=== PATIENT | male | born 1955 | race Caucasian/White ===

== ENCOUNTER 2017-01-19 01:49 | Inpatient (IN) | payer OTHER ==
[~2017-01-19] VITALS: Ht 167.6 cm; Wt 63.0 kg
--- NOTE | ~2017-01-19 | PR ---
[place], [place] PROGRESS NOTE NAME: ARIEL LOJA UNIT #: [id number] ROOM: 317 DOCTOR: LILIYA LEACH BIRTHDATE: [birth year] DOS: 01/21/2017 CHIEF COMPLAINT: "Good morning." SUMMARY OF VISIT: The patient was assessed in his room where he engaged in conversation. It should be noted that nurses stated that he did not sleep well last night. He does state that overall he is feeling better, but he also acknowledges poor sleep. MENTAL STATUS: He is alert and oriented to person, place, approximate to time. Mood is a little bit irritable. No overt signs of auditory or visual hallucinations, delusions, paranoia, richard or hypomania. Memory overall appears to be intact. PLAN: His Invega was increased yesterday. Dr. Ramos went ahead and increased his trazodone for the nighttime to help with the insomnia and we increased it to 100 mg at bedtime. We will see if this helps with his sleep. If we can get him sleeping better, this may help with his mood lability and overall outlook. We will continue to try to engage in individual and carlisle milieu therapy with the plan to getting him back to [place] once stable. NELLY LEACH CNP CM:PNTRANS [id number] LILIYA LEACH 01/21/17 1158 interface
--- NOTE | ~2017-01-19 | PR ---
[place], [place] PROGRESS NOTE NAME: ARIEL LOJA UNIT #: [id number] ROOM: 317 DOCTOR: LILIYA LEACH BIRTHDATE: [birth year] DOS: 01/22/2017 SUMMARY OF VISIT: The patient assessed in the dining room where he has finished up breakfast. He stated that he slept well, very fast pace, speech pressured, little bit manicky, states that he is feeling good when can he get out of here. He is only supposed to be here 3 days talked about the recent fall just jumping all over the place. MENTAL STATUS: He is alert and oriented to person, place, approximate time. Mood, hypomanic to manic. Affect a little bit inappropriate. There are no overt signs of auditory or visual hallucinations may be some delusional thought processes. No paranoia. Memory overall intact. PLAN: I discussed with Dr. Ramos. I am going to go ahead and increase his trazodone to 150 mg at bedtime to help with his sleep. He got about 5 hours of sleep last night was the most he has had since he has been here, sore on the right track but also going to go ahead and increase his Invega see if I can help break some of this richard and psychosis and delusions. We will continue to try to engage in individual and carlisle milieu therapy with the plan to discharge once stable. NELLY LEACH CNP CM:PNTRANS LILIYA LEACH 01/22/17 1656 interface
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
--- NOTE | ~2017-01-19 | PR ---
[place], [place] PROGRESS NOTE NAME: ARIEL LOJA UNIT #: [id number] ROOM: 317 DOCTOR: DARON ECHEVARRIA MD BIRTHDATE: [birth year] DOS: 01/20/2017 CHIEF COMPLAINT: "I was sleeping, so hard when they came in to give me my trazodone last night. I don't even remember if I took it." SUMMARY OF THE VISIT: The patient was interviewed in his room. He was sitting on the edge of his bed and engaged readily in conversation. He did report to me that he is feeling better since he has been here and is anxious to go back to [place]. Per his report, he has lived there for over 5 years and per his report loves it very much. He denies any medication side effects and feels that overall things are improving. Nurses report; however, he still can be short and terse and very irritable at times. He is tolerating the current medication regimen well. MENTAL STATUS: He is alert and oriented to person, place and time. Mood does seem to be still somewhat labile, but improving. There is no gross richard or hypomania. There are no gross auditory or visual hallucinations. Short, intermediate and assisted memory are relatively intact. PLAN: I will go ahead now and increase the Invega to its target dose of 6 mg in the morning. I will also check a valproic acid level in the a.m. to ensure that we are trending towards a therapeutic level, continue to engage him in individual and carlisle milieu activity with the ultimate plan to return him back to [place] when stable. DARON ECHEVARRIA MD CM:PNTRANS [id number] DARON ECHEVARRIA MD 01/20/17 1150 interface
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
[2017-01-19] MEDS ORDERED: ABILIFY15 MG PO (02:05)
[2017-01-19] MEDS ORDERED: METFORMIN HCL500 M2 PO (02:06)
[2017-01-19] MEDS ORDERED: XANAX0.5 MG PO (02:07)
[2017-01-19] MEDS ORDERED: PERPHENAZINE8 MG PO (02:08)
[2017-01-19] MEDS ORDERED: D3-20002000 UNIT PO (02:08)
[2017-01-19] MEDS ORDERED: CLARITIN10 MG PO (02:09)
[2017-01-19] MEDS ORDERED: ZESTRIL10 MG PO (02:09)
[2017-01-19] MEDS ORDERED: TRAZODONE100 MG PO (02:10)
[2017-01-19] MEDS ORDERED: ZOCOR40 MG PO (02:11)
[2017-01-19] MEDS ORDERED: EFFEXOR XR75 MG PO (02:12)
[2017-01-19] MEDS ORDERED: DEPAKOTE500 MG PO (02:12)
[2017-01-19 03:42] VITALS: BP 147/75
[2017-01-19] MEDS ORDERED: LISINOPRIL20 MG PO (03:53)
[2017-01-19 04:13] LABS: BILIRUBIN NEGATIVE (NEGATIVE); BLOOD 3+ (NEGATIVE); CLARITY CLEAR (CLEAR); COLOR YELLOW (YELLOW); GLUCOSE NEGATIVE (NEGATIVE); KETONE TRACE (NEGATIVE); LEUKO ESTERASE TRACE (NEGATIVE); NITRITE NEGATIVE (NEGATIVE); PROTEIN NEGATIVE (NEGATIVE); SPECIFIC GRAVITY 1.015 (1.005-1.030)
[2017-01-19 04:21] LABS: RBC 31-40 rbc/hpf (0-2); URINE REFLEX COMMENT YES (NO)
[2017-01-19 07:50] VITALS: BP 149/85
[2017-01-19 08:43] LABS: BASO % 0.5 % (0.0-1.0); EOS # 0.1 10*3/uL (0.0-0.4); EOS % 0.9 % (1.0-4.0); HEMATOCRIT 44.4 % (42.0-52.0); HEMOGLOBIN 14.6 g/dl (14.0-18.0); LYMPH # 1.6 10*3/uL (1.3-4.4); LYMPH % 17.9 % (27.0-41.0); MEAN CELL VOLUME 87.7 fl (80.0-94.0); MEAN CORPUSCULAR HGB 28.9 pg (27.0-31.0); MEAN CORPUSCULAR HGB CONC 32.9 g/dl (33.0-37.0); MEAN PLATELET VOLUME 10.8 fl (9.6-12.3); MONO % 11.3 % (3.0-9.0); NEUT # 6.1 10*3/uL (2.3-7.9); NEUT % 68.9 % (47.0-73.0); PLATELET COUNT AUTOMATED 188 10*3/uL (130-400); RED BLOOD COUNT 5.06 10*6/uL (4.50-5.90); RED CELL DISTRI WIDTH 13.1 % (0-14.5); WHITE BLOOD COUNT 8.8 10*3/uL (4.8-10.8)
[2017-01-19 08:55] LABS: HEMOGLOBIN A1c 5.8 % (4.8-5.6)
[2017-01-19 09:05] LABS: ALBUMIN 3.7 gm/dl (3.1-4.5); BUN 15 mg/dl (7-24); CARBON DIOXIDE 27 mmol/L (21-32); CHLORIDE 103 mmol/L (98-107); GLUCOSE 107 mg/dL (65-99); POTASSIUM 4.4 mmol/L (3.5-5.1); SODIUM 141 mmol/L (136-145)
[2017-01-19 09:08] LABS: ALKALINE PHOSPHATASE 46 U/L (45-117); BILIRUBIN, TOTAL 0.5 mg/dl (0.2-1.0); EST GLOM FILT AFRICAN AMERICAN > 60 ml/min; SGOT/AST 36 IU/L (3-35); SGPT/ALT 39 U/L (12-78); TOTAL PROTEIN 7.4 gm/dL (6.4-8.2)
[2017-01-19 09:26] LABS: FOLIC ACID 15.49 ng/mL (>5.38); VITAMIN D, 25-HYDROXY 137.8 ng/mL (30-100)
[2017-01-19] MEDS ORDERED: OMEPRAZOLE20 M2 PO (16:52)
[2017-01-19 20:42] VITALS: BP 140/76
[2017-01-20 09:00] VITALS: BP 140/82
[2017-01-20 21:02] VITALS: BP 110/70
[2017-01-21 07:54] VITALS: BP 136/97
[2017-01-21 19:45] VITALS: BP 150/75
[2017-01-22 07:26] VITALS: BP 124/68
[2017-01-22 20:39] VITALS: BP 131/80
[2017-01-23 07:14] VITALS: BP 154/88
[2017-01-23] MEDS ORDERED: DIVALPROEX SOD500 MG PO (09:16)
[2017-01-23] MEDS ORDERED: TRAZODONE150 MG PO (09:16)
[2017-01-23] MEDS ORDERED: INVEGA9 MG PO (09:16)
== END 2017-01-23 11:15 | DRG 885 ==
LOC: 3N 01:49
PROVIDERS: Psychiatry & Neurology Psychiatry
DX: F25.9 Schizoaffective disorder, unspecified (principal); F23 Brief psychotic disorder; I10 Essential (primary) hypertension; F42.9 Obsessive-compulsive disorder, unspecified; E11.9 Type 2 diabetes mellitus without complications; E55.9 Vitamin D deficiency, unspecified; E78.5 Hyperlipidemia, unspecified; Z90.49 Acquired absence of other specified parts of digestive tract; Z82.0 Family history of epilepsy and other diseases of the nervous system; Z83.3 Family history of diabetes mellitus; Z88.6 Allergy status to analgesic agent; Z79.84 Long term (current) use of oral hypoglycemic drugs; Z79.899 Other long term (current) drug therapy

== ENCOUNTER 2025-05-17 11:19 | Inpatient (IN) | payer MEDICAID ==
[~2025-05-17] VITALS: Ht 167.6 cm; Wt 69.4 kg
[~2025-05-17 11:19] MED LIST: ABILIFY15 MG PO; CIMETIDINE400 M1 PO; CLARITIN10 MG PO; CLONAZEPAM0.5 M2 PO; D3-20002000 UNIT PO; DEPAKOTE500 MG PO; DIVALPROEX SOD500 MG PO; EFFEXOR XR75 MG PO; FLUVOXAMINE50 MG PO; GABAPENTIN800 MG PO; GEMTESA75 MG PO; INVEGA9 MG PO; KAPSPARGO SPRIN50 MG PO; LISINOPRIL20 MG PO; METFORMIN HCL500 M2 PO; NEURONTIN100 MG PO; OMEPRAZOLE20 M2 PO; OXYBUTYNIN10 MG PO; PERPHENAZINE8 MG PO; PRAVASTATIN SOD20 MG PO; RISPERDAL1 M1 PO; RISPERIDONE2 M2 PO; TAMSULOSIN HCL0.4 MG PO; TRAZODONE100 MG PO; TRAZODONE150 MG PO; XANAX0.5 MG PO; ZESTRIL10 MG PO; ZOCOR40 MG PO
[2025-05-17 11:28] VITALS: BP 124/75
[2025-05-17] MEDS ORDERED: LAMICTAL25 MG PO (11:39)
[2025-05-17] MEDS ORDERED: FLUVOXAMINE50 MG PO (11:41)
[2025-05-17] MEDS ORDERED: FLUVOXAMINE100 MG PO (11:42)
[2025-05-17] MEDS ORDERED: RISPERDAL3 M1 PO (11:48)
[2025-05-17 12:12] LABS: BASO # 0.1 10*3/uL (0.0-0.1); BASO % 0.7 % (0.0-1.0); EOS # 0.2 10*3/uL (0.0-0.4); EOS % 2.2 % (1.0-4.0); MEAN CELL VOLUME 89.8 fl (80.0-94.0); MEAN CORPUSCULAR HGB 28.5 pg (27.0-31.0); MEAN PLATELET VOLUME 8.9 fl (9.6-12.3); MONO # 1.0 10*3/uL (0.1-1.0); MONO % 13.6 % (3.0-9.0); NEUT # 4.2 10*3/uL (2.3-7.9); NEUT % 57.1 % (47.0-73.0); NUCLEATED RED BLOOD CELL 0.0 % (0.0-0.0); NUCLEATED RED BLOOD CELL 0.0 10*3/uL (0.0-0.0); PLATELET COUNT AUTOMATED 196 10*3/uL (130-400); RED CELL DISTRI WIDTH 13.2 % (0-14.5)
[2025-05-17 12:12] LABS: BILIRUBIN Negative (Negative); BLOOD Negative (Negative); CLARITY Clear (Clear); COLOR Yellow (Yellow); KETONE Negative (Negative); LEUKO ESTERASE Negative (Negative); NITRITE Negative (Negative); PH 7.5 (4.5-8.0); SPECIFIC GRAVITY 1.015 (1.001-1.030); UROBILINOGEN 1.0 E.U./dl (0.0-1.0)
[2025-05-17 12:28] LABS: BACTERIA 2+; RBC 0-2 rbc/hpf (0-2); WBC 0-2 wbc/hpf (0-5)
[2025-05-17 12:32] LABS: BUN 16 mg/dl (9-23)
[2025-05-17 12:37] LABS: ETHYL ALCOHOL < 3.0 mg/dl (<3)
[2025-05-17 12:59] LABS: URINE AMPHETAMINES Negative (1000ng/ml); URINE BARBITURATES Negative (200ng/ml); URINE BENZODIAZEPINES Negative (200ng/ml); URINE CANNABINOIDS (THC) Negative (50ng/ml); URINE COCAINE Negative (300ng/ml); URINE METHADONE Negative (300ng/ml); URINE OPIATES Negative (300ng/ml); URINE PHENCYCLIDINE Negative (25ng/ml)
[2025-05-17 14:00] VITALS: BP 173/70
[2025-05-17] MEDS ORDERED: HEMORRHOIDAL RE30 GM T (14:26)
[2025-05-17] MEDS ORDERED: IMODIUM A-D2 M2 PO (14:27)
[2025-05-17] MEDS ORDERED: TRAMADOL HCL50 MG PO (14:28)
[2025-05-17] MEDS ORDERED: TRAZODONE50 MG PO (14:29)
[2025-05-17] MEDS ORDERED: TYLENOL325 M2 PO (14:30)
[2025-05-17] MEDS ORDERED: ZOLOFT50 MG PO (14:31)
[2025-05-17] MEDS ORDERED: VISTARIL25 MG PO (14:31)
[2025-05-17] MEDS ORDERED: ACETAMINOPHEN 325 MG TAB PO PRN (14:40)
[2025-05-17] MEDS ORDERED: MG-AL HYDROXIDE/SIMETICONE 30 ML UDC PO PRN (14:40)
[2025-05-17] MEDS ORDERED: Menthol/Zinc Oxide 4 GM THIN T PRN (14:50)
[2025-05-17] MEDS ORDERED: DEXTROSE 50% 25 GM/50 ML VIAL IV PRN (15:45)
[2025-05-17 16:16] VITALS: BP 158/74
[2025-05-17] MEDS ORDERED: INSULIN LISPRO 1 UNIT/0.01 ML SQ SCH (16:30)
[2025-05-17 20:00] VITALS: BP 145/76
[2025-05-17] MEDS ORDERED: CEPHALEXIN 500 MG CAP PO SCH (21:00)
[2025-05-17] MEDS ORDERED: risperiDONE 1 MG TAB PO SCH (21:00)
[2025-05-17] MEDS ORDERED: GABAPENTIN 800 MG TAB PO SCH (21:00)
[2025-05-17] MEDS ORDERED: FAMOTIDINE 20 MG TAB PO SCH (21:00)
[2025-05-17] MEDS ORDERED: LIDOCAINE 5% ANORECTAL CREAM T SCH (21:00)
[2025-05-17] MEDS ORDERED: ATORVASTATIN CALCIUM 10 MG TAB PO SCH (21:00)
[2025-05-18 06:48] LABS: BUN 17 mg/dl (9-23); LDL CHOLESTEROL 47 mg/dL (9-159); SGPT/ALT 8 U/L (5-49); VALPROIC ACID (DEPAKENE) 23.1 ug/ml (50-100)
[2025-05-18 08:06] LABS: VITAMIN D, 25-HYDROXY 99.5 ng/mL (30-100)
[2025-05-18 08:23] VITALS: BP 151/69
[2025-05-18] MEDS ORDERED: METOPROLOL SUCCINATE XR 50 MG TAB PO SCH (09:00)
[2025-05-18] MEDS ORDERED: Cholecalciferol 2,000 UNIT TABLET (50 MCG) PO SCH (09:00)
[2025-05-18] MEDS ORDERED: LISINOPRIL 10 MG TAB PO SCH (09:00)
[2025-05-18] MEDS ORDERED: LORATADINE 10 MG TAB PO SCH (09:00)
[2025-05-18] MEDS ORDERED: GEMTESA 75 MG PO SCH (10:00)
[2025-05-18 19:55] VITALS: BP 135/81
[2025-05-19 08:00] VITALS: BP 147/64
[2025-05-19 20:00] VITALS: BP 132/72
[2025-05-19] MEDS ORDERED: risperiDONE 0.5 MG TAB PO SCH (21:00)
[2025-05-20 08:00] VITALS: BP 110/70
[2025-05-20 20:00] VITALS: BP 153/86
[2025-05-20 23:29] LABS: BILIRUBIN Negative (Negative); BLOOD Negative (Negative); CLARITY Cloudy (Clear); COLOR Yellow (Yellow); KETONE Negative (Negative); LEUKO ESTERASE Negative (Negative); NITRITE Negative (Negative); SPECIFIC GRAVITY 1.015 (1.001-1.030); UROBILINOGEN 1.0 E.U./dl (0.0-1.0)
[2025-05-20 23:36] LABS: PH 8.5 (4.5-8.0)
[2025-05-20 23:39] LABS: BACTERIA 1+; RBC 0-2 rbc/hpf (0-2); WBC 0-2 wbc/hpf (0-5)
[2025-05-21 08:40] VITALS: BP 146/76
[2025-05-21] MEDS ORDERED: ALGINATE DRESSING/CME-CELL 4X4 1 EACH BANDAGE T ONE (16:06)
[2025-05-21 20:00] VITALS: BP 123/58
[2025-05-22 08:00] VITALS: BP 107/60
[2025-05-22] MEDS ORDERED: Bethanechol Chloride 10 MG TAB PO SCH (13:00)
[2025-05-22] MEDS ORDERED: PREPARATION H SRF/SHARK LIVER 1 OZ TUBE R PRN (13:30)
[2025-05-22 20:00] VITALS: BP 141/83
[2025-05-23 08:00] VITALS: BP 139/59
[2025-05-23 20:00] VITALS: BP 136/64
[2025-05-24 06:15] LABS: BASO # 0.1 10*3/uL (0.0-0.1); BASO % 0.7 % (0.0-1.0); EOS # 0.2 10*3/uL (0.0-0.4); EOS % 2.6 % (1.0-4.0); MEAN CELL VOLUME 87.2 fl (80.0-94.0); MEAN CORPUSCULAR HGB 28.4 pg (27.0-31.0); MEAN PLATELET VOLUME 9.3 fl (9.6-12.3); MONO # 1.2 10*3/uL (0.1-1.0); MONO % 14.2 % (3.0-9.0); NEUT # 4.2 10*3/uL (2.3-7.9); NEUT % 47.7 % (47.0-73.0); NUCLEATED RED BLOOD CELL 0.0 % (0.0-0.0); NUCLEATED RED BLOOD CELL 0.0 10*3/uL (0.0-0.0); PLATELET COUNT AUTOMATED 187 10*3/uL (130-400); RED CELL DISTRI WIDTH 13.4 % (0-14.5)
[2025-05-24 07:21] LABS: BUN 20 mg/dl (9-23); SGPT/ALT 10 U/L (5-49)
[2025-05-24 08:24] VITALS: BP 133/63
[2025-05-24 18:07] LABS: CLONAZEPAM (KLONOPIN),SERUM 9 ng/mL (20-70)
[2025-05-24 20:00] VITALS: BP 139/63
[2025-05-25 08:39] VITALS: BP 134/64
[2025-05-25 20:00] VITALS: BP 138/46
[2025-05-26 08:00] VITALS: BP 147/84
[2025-05-26 20:00] VITALS: BP 154/83
[2025-05-26] MEDS ORDERED: risperiDONE 0.5 MG TAB PO SCH (21:00)
[2025-05-27 08:00] VITALS: BP 119/60
[2025-05-27 20:00] VITALS: BP 154/83
[2025-05-28 08:00] VITALS: BP 126/53
[2025-05-28] MEDS ORDERED: CLONAZEPAM1 MG PO (08:55)
[2025-05-28] MEDS ORDERED: DULOXETINE HCL60 MG PO (08:55)
[2025-05-28] MEDS ORDERED: RISPERIDONE0.5 MG PO (08:55)
[2025-05-28 20:00] VITALS: BP 114/73
[2025-05-29 08:00] VITALS: BP 140/79
== END 2025-05-29 10:29 | DRG 761 ==
LOC: ED 11:19 → EDHOLD 13:40 → 3N 13:40
PROVIDERS: Counselor Professional; Nurse Practitioner Family; ADMIT Psychiatry & Neurology Psychiatry; ATTEND Psychiatry & Neurology Psychiatry
PROC: GZHZZZZ Group Psychotherapy (ICD-10-PCS; principal; 2025-05-19)
PROC: GZ56ZZZ Individual Psychotherapy, Supportive (ICD-10-PCS; 2025-05-19)
DX: F25.0 Schizoaffective disorder, bipolar type (principal); E44.0 Moderate protein-calorie malnutrition; R45.851 Suicidal ideations; L89.151 Pressure ulcer of sacral region, stage 1; L89.321 Pressure ulcer of left buttock, stage 1; L89.311 Pressure ulcer of right buttock, stage 1; Z68.44 Body mass index [BMI] 60.0-69.9, adult; N30.00 Acute cystitis without hematuria; E11.40 Type 2 diabetes mellitus with diabetic neuropathy, unspecified; D64.9 Anemia, unspecified; I12.9 Hypertensive chronic kidney disease with stage 1 through stage 4 chronic kidney disease, or unspecified chronic kidney disease; E11.22 Type 2 diabetes mellitus with diabetic chronic kidney disease; N18.9 Chronic kidney disease, unspecified; F41.9 Anxiety disorder, unspecified; E11.65 Type 2 diabetes mellitus with hyperglycemia; E55.9 Vitamin D deficiency, unspecified; E78.1 Pure hyperglyceridemia; E11.42 Type 2 diabetes mellitus with diabetic polyneuropathy; N32.81 Overactive bladder; S90.32XA Contusion of left foot, initial encounter; R33.9 Retention of urine, unspecified; N40.1 Benign prostatic hyperplasia with lower urinary tract symptoms; R35.0 Frequency of micturition; K64.9 Unspecified hemorrhoids; S90.31XA Contusion of right foot, initial encounter; Z88.8 Allergy status to other drugs, medicaments and biological substances; Z91.09 Other allergy status, other than to drugs and biological substances; Z79.899 Other long term (current) drug therapy; Z79.01 Long term (current) use of anticoagulants; Z79.2 Long term (current) use of antibiotics; Z90.49 Acquired absence of other specified parts of digestive tract; Z83.3 Family history of diabetes mellitus; Z81.8 Family history of other mental and behavioral disorders; Z91.018 Allergy to other foods; X58.XXXA Exposure to other specified factors, initial encounter; Y93.89 Activity, other specified; Y92.89 Other specified places as the place of occurrence of the external cause; Y99.8 Other external cause status

== ENCOUNTER 2025-06-24 13:15 | Inpatient (IN) | payer MEDICAID ==
[~2025-06-24] VITALS: Ht 167.6 cm; Wt 67.1 kg
[~2025-06-24 13:15] MED LIST changes: +CLONAZEPAM1 MG PO; +DULOXETINE HCL60 MG PO; +FLUVOXAMINE100 MG PO; +HEMORRHOIDAL RE30 GM T; +IMODIUM A-D2 M2 PO; +LAMICTAL25 MG PO; +RISPERDAL3 M1 PO; +RISPERIDONE0.5 MG PO; +TRAMADOL HCL50 MG PO; +TRAZODONE50 MG PO; +TYLENOL325 M2 PO; +VISTARIL25 MG PO; +ZOLOFT50 MG PO
[2025-06-24 13:28] VITALS: BP 126/81
[2025-06-24 13:46] LABS: BASO # 0.1 10*3/uL (0.0-0.1); BASO % 0.6 % (0.0-1.0); EOS # 0.2 10*3/uL (0.0-0.4); EOS % 2.7 % (1.0-4.0); MEAN CELL VOLUME 85.9 fl (80.0-94.0); MEAN CORPUSCULAR HGB 28.2 pg (27.0-31.0); MEAN PLATELET VOLUME 9.8 fl (9.6-12.3); MONO # 0.8 10*3/uL (0.1-1.0); MONO % 8.5 % (3.0-9.0); NEUT # 4.8 10*3/uL (2.3-7.9); NEUT % 53.4 % (47.0-73.0); NUCLEATED RED BLOOD CELL 0.0 % (0.0-0.0); NUCLEATED RED BLOOD CELL 0.0 10*3/uL (0.0-0.0); PLATELET COUNT AUTOMATED 272 10*3/uL (130-400); RED CELL DISTRI WIDTH 13.0 % (0-14.5)
[2025-06-24 14:00] LABS: BILIRUBIN Negative (Negative); BLOOD Negative (Negative); CLARITY Clear (Clear); COLOR Yellow (Yellow); KETONE Negative (Negative); LEUKO ESTERASE Trace (Negative); NITRITE Negative (Negative); PH 6.5 (4.5-8.0); SPECIFIC GRAVITY 1.015 (1.001-1.030); UROBILINOGEN 1.0 E.U./dl (0.0-1.0)
[2025-06-24 14:05] LABS: BUN 16 mg/dl (9-23)
[2025-06-24 14:07] LABS: ETHYL ALCOHOL < 3.0 mg/dl (<3)
[2025-06-24 14:10] LABS: BACTERIA 1+; EPITHELIAL CELLS 0-2; WBC 21-30 wbc/hpf (0-5)
[2025-06-24 15:51] VITALS: BP 152/75
[2025-06-24] MEDS ORDERED: ANTI-DIARRHEAL2 MG PO (16:05)
[2025-06-24] MEDS ORDERED: hydrOXYzine hydrochloride 50 MG/ML VIAL IM PRN (16:15)
[2025-06-24] MEDS ORDERED: LORazepam 1 MG TAB PO PRN (16:15)
[2025-06-24] MEDS ORDERED: Menthol/Zinc Oxide 4 GM THIN T PRN (16:20)
[2025-06-24] MEDS ORDERED: Water, Sterile 10 ML VIAL IM PRN (16:20)
[2025-06-24] MEDS ORDERED: ACETAMINOPHEN 325 MG TAB PO PRN (16:20)
[2025-06-24] MEDS ORDERED: MG-AL HYDROXIDE/SIMETICONE 30 ML UDC PO PRN (16:20)
[2025-06-24 20:00] VITALS: BP 137/68
[2025-06-24] MEDS ORDERED: CIMETIDINE 200 MG TAB PO SCH (21:00)
[2025-06-24] MEDS ORDERED: SIMVASTATIN 20 MG TAB PO SCH (21:00)
[2025-06-24] MEDS ORDERED: risperiDONE 0.5 MG TAB PO SCH (21:00)
[2025-06-24] MEDS ORDERED: GABAPENTIN 800 MG TAB PO SCH (21:00)
[2025-06-24] MEDS ORDERED: LIDOCAINE 5% ANORECTAL CREAM T SCH (21:00)
[2025-06-24 23:45] LABS: BILIRUBIN Negative (Negative); BLOOD 3+ (Negative); CLARITY Clear (Clear); COLOR Yellow (Yellow); KETONE Negative (Negative); LEUKO ESTERASE Negative (Negative); NITRITE Negative (Negative); PH 7.5 (4.5-8.0); SPECIFIC GRAVITY 1.015 (1.001-1.030); UROBILINOGEN 1.0 E.U./dl (0.0-1.0)
[2025-06-25 00:21] LABS: BACTERIA 2+; RBC 41-50 rbc/hpf (0-2)
[2025-06-25 06:47] LABS: BASO # 0.1 10*3/uL (0.0-0.1); BASO % 0.6 % (0.0-1.0); EOS # 0.3 10*3/uL (0.0-0.4); EOS % 2.9 % (1.0-4.0); MEAN CELL VOLUME 85.5 fl (80.0-94.0); MEAN CORPUSCULAR HGB 28.3 pg (27.0-31.0); MEAN PLATELET VOLUME 9.5 fl (9.6-12.3); MONO # 0.8 10*3/uL (0.1-1.0); MONO % 8.4 % (3.0-9.0); NEUT # 4.9 10*3/uL (2.3-7.9); NEUT % 54.2 % (47.0-73.0); NUCLEATED RED BLOOD CELL 0.0 % (0.0-0.0); NUCLEATED RED BLOOD CELL 0.0 10*3/uL (0.0-0.0); PLATELET COUNT AUTOMATED 242 10*3/uL (130-400); RED CELL DISTRI WIDTH 13.2 % (0-14.5)
[2025-06-25 07:19] LABS: BUN 15 mg/dl (9-23); LDL CHOLESTEROL 67 mg/dL (9-159)
[2025-06-25 07:22] LABS: SGPT/ALT < 7 U/L (5-49)
[2025-06-25 08:00] VITALS: BP 147/71
[2025-06-25 08:03] LABS: VITAMIN D, 25-HYDROXY 83.7 ng/mL (30-100)
[2025-06-25] MEDS ORDERED: METOPROLOL SUCCINATE XR 50 MG TAB PO SCH (09:00)
[2025-06-25] MEDS ORDERED: LISINOPRIL 10 MG TAB PO SCH (09:00)
[2025-06-25] MEDS ORDERED: LORATADINE 10 MG TAB PO SCH (09:00)
[2025-06-25] MEDS ORDERED: DEXTROSE 50% 25 GM/50 ML VIAL IV PRN (12:45)
[2025-06-25] MEDS ORDERED: INSULIN LISPRO 1 UNIT/0.01 ML SQ SCH (16:30)
[2025-06-25 20:00] VITALS: BP 145/61
[2025-06-26] MEDS ORDERED: Metformin 500 MG EXTENDED-RELEASE TABLET PO SCH (07:30)
[2025-06-26 08:22] VITALS: BP 132/70
[2025-06-26 20:00] VITALS: BP 124/60
[2025-06-26] MEDS ORDERED: Paliperidone 3 MG TER PO SCH (21:00)
[2025-06-27 08:23] VITALS: BP 118/68
[2025-06-27] MEDS ORDERED: LIDOCAINE 5% ANORECTAL CREAM T SCH (10:00)
[2025-06-27] MEDS ORDERED: SILVER SULFADIAZINE 25 GM TUBE T SCH (10:00)
[2025-06-27 20:00] VITALS: BP 138/74
[2025-06-28 08:00] VITALS: BP 130/65
[2025-06-28 20:00] VITALS: BP 157/93
[2025-06-29 07:57] VITALS: BP 132/71
[2025-06-29 20:00] VITALS: BP 123/63
[2025-06-29] MEDS ORDERED: Paliperidone 6 MG TER PO SCH (21:00)
[2025-06-30 08:02] VITALS: BP 123/78
[2025-06-30] MEDS ORDERED: BISACODYL 5 MG TAB PO ONE (09:00)
[2025-06-30 20:00] VITALS: BP 138/70
[2025-06-30] MEDS ORDERED: ARIPiprazole 5 MG TAB PO SCH (21:00)
[2025-07-01 08:24] VITALS: BP 125/74
[2025-07-01] MEDS ORDERED: BISACODYL 10 MG SUPP R ONE (09:15)
[2025-07-01] MEDS ORDERED: BISACODYL 5 MG TAB PO SCH (10:00)
[2025-07-01 20:43] VITALS: BP 151/88
[2025-07-02 08:00] VITALS: BP 126/73
[2025-07-02 20:00] VITALS: BP 132/71
[2025-07-03 07:48] VITALS: BP 127/59
[2025-07-03] MEDS ORDERED: BISACODYL 5 MG TAB PO SCH (10:00)
[2025-07-03] MEDS ORDERED: FOAM BANDAGE HEEL T ONE (16:29)
[2025-07-03 20:00] VITALS: BP 146/74
[2025-07-03] MEDS ORDERED: ARIPiprazole 5 MG TAB PO SCH (21:00)
[2025-07-04 09:53] VITALS: BP 126/81
[2025-07-04] MEDS ORDERED: CLONAZEPAM0.5 M2 PO (10:06)
[2025-07-04] MEDS ORDERED: CIMETIDINE200 MG PO (10:06)
[2025-07-04] MEDS ORDERED: CLONAZEPAM1 MG PO (10:06)
[2025-07-04] MEDS ORDERED: ARIPIPRAZOLE5 MG PO (10:06)
[2025-07-04] MEDS ORDERED: GABAPENTIN800 MG PO (10:06)
[2025-07-04] MEDS ORDERED: MELATONIN5 M7 PO (10:06)
== END 2025-07-04 11:39 | DRG 758 ==
LOC: ED 13:15 → EDHOLD 14:48 → 3N 14:48
PROVIDERS: Nurse Practitioner Family; ADMIT Psychiatry & Neurology Psychiatry; ATTEND Psychiatry & Neurology Psychiatry
PROC: GZ58ZZZ Individual Psychotherapy, Cognitive-Behavioral (ICD-10-PCS; principal; 2025-06-27)
PROC: GZHZZZZ Group Psychotherapy (ICD-10-PCS; 2025-06-27)
DX: F63.81 Intermittent explosive disorder (principal); F25.9 Schizoaffective disorder, unspecified; D64.9 Anemia, unspecified; I12.9 Hypertensive chronic kidney disease with stage 1 through stage 4 chronic kidney disease, or unspecified chronic kidney disease; N18.9 Chronic kidney disease, unspecified; E11.22 Type 2 diabetes mellitus with diabetic chronic kidney disease; E11.40 Type 2 diabetes mellitus with diabetic neuropathy, unspecified; E11.65 Type 2 diabetes mellitus with hyperglycemia; R45.851 Suicidal ideations; R33.9 Retention of urine, unspecified; E55.9 Vitamin D deficiency, unspecified; E78.2 Mixed hyperlipidemia; F31.30 Bipolar disorder, current episode depressed, mild or moderate severity, unspecified; N32.81 Overactive bladder; N40.0 Benign prostatic hyperplasia without lower urinary tract symptoms; F41.1 Generalized anxiety disorder; F42.9 Obsessive-compulsive disorder, unspecified; Z88.8 Allergy status to other drugs, medicaments and biological substances; Z88.6 Allergy status to analgesic agent; Z91.011 Allergy to milk products; Z90.49 Acquired absence of other specified parts of digestive tract; Z83.3 Family history of diabetes mellitus; Z81.8 Family history of other mental and behavioral disorders